=== PATIENT | male | born 1985 | race Hispanic/Latino ===

== ENCOUNTER 2021-04-02 19:20 | Emergency (ER) | payer OTHER, SELFPAY ==
[2021-04-02 19:24] VITALS: BP 145/86; PULSE 91; RESP 22; TEMP 36.2; O2SAT 100; BMI 28.8
--- NOTE | 2021-04-02 19:28 | DI.RAD.S_ITS ---
PROCEDURE: XR ANKLE RT MIN 3V INDICATIONS: injury while running TECHNIQUE: 3 views of the ankle were acquired. COMPARISON: None. FINDINGS: Bones: No fractures or dislocations. Ankle mortise is normally aligned. No suspicious bony lesions. Soft tissues: No tibiotalar joint effusion. Achilles tendon appears normal. Moderate lateral malleolar soft tissue edema. IMPRESSION: Moderate lateral malleolar soft tissue swelling without underlying fracture or dislocation. If there is persistent clinical concern for occult fracture given adequate mechanism of injury, consider repeat imaging in 10-14 days. Dictated by: Jasiel Islas M.D. on 04/02/2021 at 20:20 Approved by: Jasiel Islas M.D. on 04/02/2021 at 20:21
[2021-04-02] MEDS: KETOROLAC 30 MG/ML VIAL IM (20:21)
--- NOTE | 2021-04-02 21:05 | ED_ITS ---
HPI - Extremity Injury (Lower) General Chief Complaint: Extremity Injury, Lower Stated Complaint: rolled right ankle Time Seen by Provider: 04/02/21 20:56 Source: patient Mode of arrival: Family Vehicle Limitations: no limitations History of Present Illness HPI Narrative: Patient is a 35-year-old male who presents with right ankle pain. He was running is when he was going upper onto a curb and his ankle rolled. He has obvious swelling in his lateral malleoli no numbness tingling or weakness. No other injury. MD complaint: ankle injury Related Data Allergies Allergy/AdvReac Type Severity Reaction Status Date / Time No Known Drug Allergies Allergy Verified 04/02/21 19:24 Review of Systems Review of Systems Narrative: GENERAL: Denies chills,fever HEENT: Denies throat pain RESPIRATORY: Denies dyspnea, cough, wheezing CARDIOVASCULAR: Denies chest pain, palpitations GASTROINTESTINAL: Denies nausea, vomiting MUSCULOSKELETAL: See HPI SKIN: No rash, no laceration, no pruritus NEUROLOGIC: Denies weakness, dizziness, headache, numbness 8 point review of systems is negative except for those stated above and HPI Patient History Medical History (Updated 04/02/21 @ 21:14 by Norma Young DO) Anxiety PTSD (post-traumatic stress disorder) Social History Smoking Status: Never smoker Smoking Status: Never smoker alcohol intake frequency: 0-2 drinks per day Substance Use Type: does not use Exam Initial Vital Signs Initial Vital Signs: Vital Signs Temperature 97.1 F L 04/02/21 19:24 Pulse Rate 91 H 04/02/21 19:24 Respiratory Rate 22 04/02/21 19:24 Blood Pressure 145/86 H 04/02/21 19:24 Pulse Oximetry 100 04/02/21 19:24 GENERAL: Well-appearing, well-nourished and in no acute distress. CARDIOVASCULAR: peripheral pulses in tact, cap refill <2 sec RESPIRATORY: No respiratory distress, speaks in full sentences without difficulty EXTREMITIES: Normal range of motion, no clubbing or edema. Neurovascularly intact Right ankle obvious swelling over lateral malleoli distal pedal pulse intact Achilles intact knee stable NEUROLOGICAL: Cranial nerves II through XII grossly intact. Normal gait and speech. SKIN: Warm, dry, no petechiae, no rashes or lesions. Course Orders Ordered: ED Orders 04/02/21 19:28 XR ankle RT min 3V Stat Discontinued Medications Ketorolac Tromethamine (Ketorolac 30 Mg/Ml Vial) 30 mg IM NOW ONE Stop: 04/02/21 20:12 Last Admin: 04/02/21 20:21 Dose: 30 mg Documented by: MALLORIE Vital Signs Vital signs: Vital Signs - 8 hr 04/02/21 19:24 Temperature 97.1 F L Pulse Rate 91 H Respiratory Rate 22 Blood Pressure 145/86 H Pulse Oximetry 100 MDM - Extremity Injury (Lower) Imaging Data Extremity x-ray #1: Radiologist's Impression: PROCEDURE: XR ANKLE RT MIN 3V INDICATIONS: injury while running TECHNIQUE: 3 views of the ankle were acquired. COMPARISON: None. FINDINGS: Bones: No fractures or dislocations. Ankle mortise is normally aligned. No suspicious bony lesions. Soft tissues: No tibiotalar joint effusion. Achilles tendon appears normal. Moderate lateral malleolar soft tissue edema. IMPRESSION: Moderate lateral malleolar soft tissue swelling without underlying fracture or dislocation. If there is persistent clinical concern for occult fracture given adequate mechanism of injury, consider repeat imaging in 10-14 days. Dictated by: Jasiel Islas M.D. on 04/02/2021 at 20:20 Discharge Plan Departure Patient Disposition: Home Clinical Impression: Right ankle sprain Qualifiers: Encounter type: initial encounter Involved ligament of ankle: unspecified [place] Qualified Code(s): S93.401A - Sprain of unspecified ligament of right ankle, initial encounter Instructions: DI for Ankle Sprain Activity Restrictions/Additional Instructions: *You have been diagnosed with right ankle sprain *What to do: Increase activity as tolerated. Crutches as needed. This can take up to 6 weeks to heal. Recommend ice, elevation, Dave wrap and crutches *Continue to take medications as directed Motrin 800 mg every 8 hours with food *Follow up with your primary care provider in 2-3 days *Return to ER if you should have increasing pain numbness tingling or any new, worsening or concerning symptoms Referrals: [facility] [Provider Group]
== END 2021-04-02 21:28 | disposition home or self-care (01) ==
PROVIDERS: Emergency Provider Emergency Medicine
DX: S93.401A Sprain of unspecified ligament of right ankle, initial encounter (principal); X50.1XXA Overexertion from prolonged static or awkward postures, initial encounter
CPT/HCPCS: 73610; 96372; 99283; J1885

== ENCOUNTER → 2021-04-12 07:09 | Outpatient (CLI) | payer OTHER, SELFPAY ==
--- NOTE | 2021-04-12 | DI.MRI.S_ITS ---
PROCEDURE: MR ANKLE RT WO CON INDICATIONS: Pain in right ankle and joints of right foot TECHNIQUE: Noncontrast sagittal T1 spin echo and T2 fast spin echo with fat saturation, axial proton density fast spin echo and T2 fast spin echo with fat saturation, coronal T1 spin echo and T2 fast spin echo with fat saturation through the ankle/hindfoot. COMPARISON: None. FINDINGS: Image quality: Excellent. Bones and joints: There is mild marrow edema involving tip of medial malleolus and adjacent medial periphery of talus. No discrete fracture line is seen. No other area of signal abnormality. No hindfoot coalitions. No osteochondral injuries of the talar dome. Small amount of joint effusion in tibiotalar and subtalar joint is seen, no gross intra-articular loose body. Medial structures: The posterior tibialis is mildly thickened with small amount of fluid distending tendon sheath at the level of anterior talus/talonavicular joint suggestive of low-grade tenosynovitis. flexor digitorum longus, and flexor hallucis longus tendons are intact. The posterior tibial neurovascular bundle appears normal within the tarsal tunnel, without extrinsic mass effect. The deep layer (anterior and posterior tibiotalar ligaments) and superficial layer (tibionavicular, tibiospring, and tibiocalcaneal ligaments) of the deltoid ligament appear normal. The spring ligament components (superomedial calcaneonavicular, medioplantar oblique calcaneonavicular, and inferoplantar longitudinal ligaments) are intact. Lateral structures: The anterior talofibular, calcaneofibular, and posterior talofibular ligaments appear attenuated with heterogeneous intrasubstance T2 hyperintense signal suggestive of sprain/low to moderate grade partial-thickness tear. More superiorly, the anterior and posterior tibiofibular ligaments appear intact, as is the intermalleolar ligament. The tibiofibular syndesmosis is normal in width at 2 mm or less. The peroneus longus and brevis tendons demonstrate normal location and morphology. Adjacent bony peroneal tubercle and retrotrochlear prominence are normal in size. The sinus tarsi demonstrates normal fatty signal, without edema, fibrosis, or cyst formation. Visualized sinus tarsi components (cervical ligament, interosseous talocalcaneal ligament, roots of the inferior extensor retinaculum) appear normal. The calcaneonavicular and calcaneocuboid components of the bifurcate ligament appear intact. The dorsal calcaneocuboid ligament appears intact. Anterior structures: The tibialis anterior, extensor hallucis longus, and extensor digitorum longus tendons appear intact. The dorsal talonavicular ligament appears intact. Posterior and plantar structures: Achilles tendon is intact. Medial and lateral bands of the plantar fascia are of normal thickness. No abductor digiti quinti muscle atrophy to suggest Rees neuropathy. IMPRESSION: 1. Sprain/low to moderate grade partial-thickness tear involving anterior and posterior talofibular ligaments and calcaneofibular ligament. 2. Low-grade tenosynovitis involving posterior tibialis tendon at the level of anterior talus/talonavicular joint. 3. Bony contusion involving medial periphery of talus and adjacent medial malleolus tip. No fracture or dislocation. Small to moderate amount of subtalar joint fluid, no gross loose body. Dictated by: Miguel Hernandez M.D. on 04/12/2021 at 9:21 Approved by: Miguel Hernandez M.D. on 04/12/2021 at 9:34
== END ==
PROVIDERS: Referring Provider Podiatrist; Visit Provider Podiatrist
DX: M25.371 Other instability, right ankle (principal); M25.571 Pain in right ankle and joints of right foot; S93.491A Sprain of other ligament of right ankle, initial encounter; S93.411A Sprain of calcaneofibular ligament of right ankle, initial encounter; M65.871 Other synovitis and tenosynovitis, right ankle and foot
CPT/HCPCS: 73721